=== PATIENT | male | born 1985 | race Caucasian/White ===

== ENCOUNTER → 2019-07-23 | Outpatient (CLI) | payer OTHER ==
--- NOTE | 2019-07-25 14:11 | SLE ---
[facility] [place] [address] POLYSOMNOGRAPHY STUDY Name: MILA DANIELLE Room #: REG [facility]#: [id number] Admission: 07/23/19 Attend Phys: Ruben Treviño MD Discharge: Date of : 81 Report #: [id number] THIS REPORT FOR: //name// CC: Ruben Treviño FAM unknown Carl Correa MD DATE OF SERVICE: 07/23/2019 SLEEP STUDY ATTENDING PHYSICIAN: Dr. Carl Correa. The patient is a 33-year-old, who weighs 318 pounds with a BMI of 45.6. The patient's Sopchoppy score was 8. The patient underwent diagnostic sleep study performed at [facility]. During the night study, the patient spent 426 minutes in bed and slept for 369 minutes with a sleep efficiency of 86%. Sleep latency was 14.4 minutes with a REM latency of 100.5 minutes. Sleep architecture showed normal stage 1 sleep, increased stage 2 sleep, normal slow wave and normal REM sleep. During the night study, the patient had 1 obstructive, and 1 central apnea, no mixed apneas. There were 20 hypopneas. The patient's apnea hypopnea index was 3.6 per hour with a REM index of 6.2 per hour and a supine index of 9.7 per hour. EKG monitoring revealed an average heart rate of 80 beats per minute. No sustained arrhythmias observed. No significant PLM seen. Nocturnal oximetry study revealed no clinically significant desaturation. Average saturation of 96% with the lowest of 88%. Due to low AHI, the patient did not meet the criteria for CPAP initiation. IMPRESSION: 1. Overall, no clinically significant sleep disorder breathing. The patient's AHI was 3.6 per hour. The patient did have positional sleep apnea with a supine AHI of 9.7 per hour. 2. No clinically significant nocturnal hypoxia. 3. No clinically significant periodic limb movements. RECOMMENDATIONS: 1. The patient did not meet the split night criteria for CPAP initiation. [facility] [address] [place] [address] POLYSOMNOGRAPHY STUDY Name: MILA DANIELLE Room #: REG [facility].#: [id number] Admission: 07/23/19 Attend Phys: Ruben Treviño MD Discharge: Date of : 81 Report #: [id number] 2. Avoid supine sleep. 3. Weight loss is strongly advised. 4. Avoid TONGUE [employer] depressants. <ELECTRONICALLY SIGNED> By: Ruben Treviño MD 07/25/19 1411 [id number] [id number] Ruben Treviño MD /nt
== END ==
LOC: SLEEPLAB
DX: G47.10 Hypersomnia, unspecified (principal)

== ENCOUNTER → 2020-04-14 | Outpatient (CLI) | payer OTHER ==
[2020-04-14 09:40] LABS: ABSOLUTE NEUTROPHILS 4.9 thou/uL (1.4-8.2); BASOPHILS 0.3 % (0.0-2.0); EOSINOPHILS 2.8 % (0.0-3.0); HEMATOCRIT 45.8 % (42.0-52.0); HEMOGLOBIN 15.7 gm/dL (14.0-18.0); LYMPHOCYTES 25.6 % (24.0-44.0); MCH 29.6 pg (26.0-34.0); MCHC 34.3 g/dL (28.0-37.0); MCV 86.4 fL (80.0-100.0); MONOCYTES 9.7 % (1.0-8.0); PLATELET COUNT 321 thou/uL (150-400); POLYS 61.6 % (36.0-66.0); WBC 7.9 thou/uL (4.0-11.0)
[2020-04-14 10:10] LABS: ALBUMIN 4.2 g/dL (3.4-5.0); ANION GAP 5 mmol/L (7-16); BUN 11 mg/dL (7-18); CALCIUM 9.4 mg/dL (8.5-10.1); CHLORIDE 103 mmol/L (98-107); CHOLESTEROL 152 mg/dL (<200); CO2 32 mmol/L (21-32); CREATININE 1.2 mg/dL (0.7-1.3); GLUCOSE 108 mg/dL (74-106); HDL CHOLESTEROL 42 mg/dL (>40); LDL CHOLESTEROL 94 mg/dL (<100); POTASSIUM 4.3 mmol/L (3.5-5.1); SGOT 36 U/L (15-37); SGPT 85 U/L (30-65); SODIUM 140 mmol/L (136-145); TC:HDL 3.6 Ratio (Not establshd); TOTAL BILIRUBIN 0.9 mg/dL (0.2-1.0); TOTAL PROTEIN 7.5 g/dL (6.4-8.2); TRIGLYCERIDE 81 mg/dL (<150); VLDL 16 mg/dL (<40)
[2020-04-14 21:05] LABS: TESTOSTERONE* 492 ng/dL (264-916)
[2020-04-15 01:06] LABS: GLYCOHEMOGLOBIN (HGB A1C) 5.2 % (4.8-5.6)
== END ==
LOC: LAB 08:50
PROVIDERS: ATTEND Nurse Practitioner
DX: I10 Essential (primary) hypertension (principal); R53.83 Other fatigue

== ENCOUNTER → 2020-04-28 | Outpatient (CLI) | payer OTHER ==
[2020-04-28 12:42] LABS: CREATININE 1.1 mg/dL (0.7-1.3)
== END ==
LOC: LAB 11:19
PROVIDERS: ATTEND Nurse Practitioner
DX: K76.0 Fatty (change of) liver, not elsewhere classified (principal); R61 Generalized hyperhidrosis

== ENCOUNTER → 2020-07-21 | Outpatient (CLI) | payer OTHER | LOC: LAB 10:53 | PROVIDERS: ATTEND Nurse Practitioner | DX: U07.1 COVID-19 (principal) ==